=== PATIENT | male | born 1975 | race African-American/Black ===

== ENCOUNTER 2016-12-28 10:58 | Emergency (ER) | payer OTHER ==
[~2016-12-28] VITALS: Ht 193 cm; Wt 146.1 kg
[~2016-12-28 10:58] MED LIST: CELE200C PO; CYCL10TA2 PO; HYDR-971 PO; IBUP-1060 PO; LISI40TA PO; METF500T4 PO
[2016-12-28 11:09] VITALS: BP 163/110
[2016-12-28] MEDS ORDERED: IBUPROFEN 800 MG TABLET. PO ONE (11:30)
--- NOTE | 2016-12-28 11:51 | PHYS DOC ---
Past Medical History Past Medical History: Diabetes-Type II, Hypertension, Other Additional Past Medical Histor: DIABETES CONTROLLED BY EATING HABITS Past Surgical History: Tonsillectomy Alcohol Use: None Drug Use: None Adult General Chief Complaint Chief Complaint: SHOULDER INJURY [facility] HPI Patient is a 41 year old male presents to the emergency department with a history of falling down the stairs 10 days ago he was not seen at that time for any pain and discomfort. He presents to the emergency department to with c/o pain and discomfort to the left upper arm and upper back. He states he is unable to raise his hand above his head without using the right arm to help. Patient denies numbness or tingling to the left hand. Patient state she has taken [place] for the pain and discomfort, this is medication he had for his leg. Review of Systems Review of Systems Constitutional: Denies fever or chills [] Eyes: Denies change in visual acuity, redness, or eye pain [] HENT: Denies nasal congestion or sore throat [] Respiratory: Denies cough or shortness of breath [] Cardiovascular: No additional information not addressed in HPI [] GI: Denies abdominal pain, nausea, vomiting, bloody stools or diarrhea [] : Denies dysuria or hematuria [] Musculoskeletal: Denies back pain. C/o left shoulder pain and discomfort Integument: Denies rash or skin lesions [] Neurologic: Denies headache, focal weakness or sensory changes [] Endocrine: Denies polyuria or polydipsia [] Current Medications Current Medications Current Medications Medications (Trade) Dose Ordered Sig/[place] Start Time Stop Time Status Last Admin Dose Admin Ibuprofen (Motrin) 800 mg 1X ONCE 12/28/16 11:30 12/28/16 11:31 DC Allergies Allergies Allergies Coded Allergies Type Severity Reaction Last Updated Verified No Known Drug Allergies 07/16/13 No Physical Exam Physical Exam Constitutional: Well developed, well nourished, no acute distress, non-toxic appearance. [] HENT: Normocephalic, atraumatic, bilateral external ears normal, oropharynx moist, no oral exudates, nose normal. [] Eyes: PERRLA, EOMI, conjunctiva normal, no discharge. [] Neck: Normal range of motion, no tenderness, supple, no stridor. [] Cardiovascular:Heart rate regular rhythm, no murmur [] Lungs & Thorax: Bilateral breath sounds clear to auscultation [] Skin: Warm, dry, no erythema, no rash. [] Back: No tenderness Extremities: Left upper arm and left upper back tenderness, no cyanosis, no clubbing, ROM intact, no edema. 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 Patient is able to raise left arm shoulder height with patient grimacing noted. Neurologic: Alert and oriented X 3, normal motor function, normal sensory function, no focal deficits noted. [] Psychologic: Affect normal, judgement normal, mood normal. [] Current Patient Data Vital Signs Vital Signs Date Time Temp Pulse Resp B/P (MAP) Pulse Ox O2 Delivery O2 Flow Rate FiO2 12/28/16 11:09 97.9 103 20 95 Room Air 97.9 EKG EKG [] Radiology/Procedures Radiology/Procedures [] Course & Med Decision Making Course & Med Decision Making Pertinent Labs and Imaging studies reviewed. (See chart for details) Patients x-ray is negative. Recommended ice packs on 20 minutes and off 20 minutes several times a day. Ibuprofen 800 mg every 8 hours with food, stop taking if you develop upset stomach. Followup with primary care provider in 3-5 days. Signs and symptoms to return to the emergency department has been provided. Patient agrees with discharge instructions, treatment regimen and followup recommendations. [] Dragon Disclaimer Dragon Disclaimer This electronic medical record was generated, in whole or in part, using a voice recognition dictation system. Departure Departure Impression: Primary Impression: Left shoulder strain Disposition: 01 HOME, SELF-CARE Condition: STABLE Referrals: KAITLIN PUTNAM MD (PCP) Patient Instructions: Shoulder Pain, [id number] Additional Instructions: Activity as tolerated Ibuprofen 800 mg every 8 hours with food, stop taking if you develop upset stomach Ice packs on 20 minutes and off 20 minutes several times a day Elevation as much as possible Followup with your primary care provider in 3-5 days Return to emergency department as needed for signs and symptoms that become worse. LEYDA RAMIRES MONOTYPER Dec 28, 2016 11:51
--- NOTE | 2016-12-28 11:53 | RAD ---
Left shoulder, 3 views, 12/28/2016: History: Fall, injury No fracture or dislocation is identified. The periarticular soft tissues are unremarkable. IMPRESSION: No acute left shoulder abnormality is detected.
== END 2016-12-28 12:10 | disposition home or self-care (01) ==
LOC: ER 10:58
DX: S46.912A Strain of unspecified muscle, fascia and tendon at shoulder and upper arm level, left arm, initial encounter (principal); E11.9 Type 2 diabetes mellitus without complications; I10 Essential (primary) hypertension; W10.8XXA Fall (on) (from) other stairs and steps, initial encounter; Y93.89 Activity, other specified; Y92.89 Other specified places as the place of occurrence of the external cause; Y99.8 Other external cause status
CPT/HCPCS: 73030; 99284

== ENCOUNTER 2017-03-29 15:11 | Emergency (ER) | payer OTHER ==
[2017-03-29 15:18] VITALS: BP 174/87
[2017-03-29] MEDS ORDERED: PSEU120T9 PO (15:25)
[2017-03-29] MEDS ORDERED: FLUT9.9S NS (15:25)
--- NOTE | 2017-03-29 15:26 | PHYS DOC ---
Past Medical History Past Medical History: Diabetes-Type II, Hypertension, Other Additional Past Medical Histor: DIABETES CONTROLLED BY EATING HABITS Past Surgical History: Tonsillectomy Alcohol Use: None Drug Use: None Adult General Chief Complaint Chief Complaint: HEADACHE HPI HPI Patient is a 42 year old male presents to the ED with c/o head congestion for our days. NO fever. HE reports that he missed work today and is seeking a work release Review of Systems Review of Systems Constitutional: Denies fever or chills [] Eyes: Denies change in visual acuity, redness, or eye pain [] HENT:nasal congest, sore throat] Respiratory: cough Cardiovascular: No additional information not addressed in HPI [] GI: Denies abdominal pain, nausea, vomiting, bloody stools or diarrhea [] : Denies dysuria or hematuria [] Musculoskeletal: Denies back pain or joint pain [] Integument: Denies rash or skin lesions [] Neurologic: Denies headache, focal weakness or sensory changes [] Endocrine: Denies polyuria or polydipsia [] Allergies Allergies Allergies Coded Allergies Type Severity Reaction Last Updated Verified No Known Drug Allergies 07/16/13 No Physical Exam Physical Exam Constitutional: Well developed, well nourished, no acute distress, non-toxic appearance. [] HENT: Normocephalic, atraumatic, bilateral external ears normal, bilateral TM with effusion, oropharynx moist, posterior pharynx with erythema, PND present, no oral exudates, nose normal. [] Eyes: PERRLA, EOMI, conjunctiva normal, no discharge. [] Neck: Normal range of motion, no tenderness, supple, no stridor. [] Cardiovascular:Heart rate regular rhythm, no murmur [] Lungs & Thorax: Bilateral breath sounds clear to auscultation [] Abdomen: Bowel sounds normal, soft, no tenderness, no masses, no pulsatile masses. [] Skin: Warm, dry, no erythema, no rash. [] Back: No tenderness, no CVA tenderness. [] Extremities: No tenderness, no cyanosis, no clubbing, ROM intact, no edema. [] Neurologic: Alert and oriented X 3, normal motor function, normal sensory function, no focal deficits noted. [] Psychologic: Affect normal, judgement normal, mood normal. [] Current Patient Data Vital Signs Vital Signs Date Time Temp Pulse Resp B/P (MAP) Pulse Ox O2 Delivery O2 Flow Rate FiO2 03/29/17 15:18 98.6 103 20 97 Room Air 98.6 EKG EKG [] Radiology/Procedures Radiology/Procedures [] Course & Med Decision Making Course & Med Decision Making Pertinent Labs and Imaging studies reviewed. (See chart for details) [] Dragon Disclaimer Dragon Disclaimer This electronic medical record was generated, in whole or in part, using a voice recognition dictation system. Departure Departure Impression: Primary Impression: Upper respiratory infection Disposition: HOME, SELF-CARE Condition: STABLE Referrals: KAITLIN PUTNAM MD (PCP) Patient Instructions: Upper Respiratory Infection, Adult Scripts Pseudoephedrine Hcl (SUDAFED 12-HOUR) 120 Mg Tablet.er 1 TAB PO BID, #20 TAB Prov: ASPEN AARON APRN 03/29/17 Fluticasone Propionate (Flonase Allergy Relief) 9.9 Ml [place].susp 2 SPRAYS NS DAILY Y for nasasl congestion], #1 BOTTLE Prov: ASPEN AARON APRN 03/29/17 Problem Qualifiers Primary Impression: Upper respiratory infection URI type: unspecified viral URI Qualified Codes: J06.9 - Acute upper respiratory infection, unspecified; B97.89 - Other viral agents as the cause of diseases classified elsewhere ASPEN AARON APRN Mar 29, 2017 15:26
== END 2017-03-29 15:41 | disposition home or self-care (01) ==
LOC: ER 15:11
DX: J06.9 Acute upper respiratory infection, unspecified (principal); I10 Essential (primary) hypertension; E11.9 Type 2 diabetes mellitus without complications
CPT/HCPCS: 99282

== ENCOUNTER → 2020-08-13 | Outpatient (CLI) | payer BC ==
[~2020-08-13] MED LIST changes: +FLUT9.9S NS; +HYDR-3164 PO; -HYDR-971 PO; +LISI-130 PO; -LISI40TA PO; +METF500T16 PO; -METF500T4 PO; +PSEU120T9 PO
--- NOTE | 2020-08-16 12:30 | KCIC ---
MR LUMBAR SPINE WO [id number] History: Reason: BACK PAIN LUMBAR REGION / Spl. Instructions: Previous MR 2013. / History: Lower back pain since June. Newer LLE pain also. Technique: Multiplanar, multi sequential MR imaging was performed of the lumbar spine. Comparison: MRI January 05, 2014. Radiographs August 03, 2020 Findings: Transitional lumbosacral anatomy with lumbarization of S1. L5-S1 disc space is identified on axial T2 series 5 image 21. Normal vertebral body height and alignment. No fracture. Conus terminates at the normal location. No evidence of nerve root clumping. L1-L2: No canal or neuroforaminal narrowing. L2-L3: No canal or neuroforaminal narrowing. L3-L4: Minimal disc bulge. Small left foraminal disc protrusion and annular fissure. Mild facet arth ropathy. No canal or neuroforaminal narrowing. L4-L5: New large central disc extrusion extending inferiorly contributing to severe canal narrowing and nerve root compression. Moderate facet arthropathy. No neuroforaminal narrowing. L5-S1: Central disc protrusion with annular fissure, increased. Moderate facet arthropathy. Bilatera l subarticular recess narrowing with abutment of the descending S1 nerve roots. No canal narrowing. M oderate left neuroforaminal narrowing. No right neuroforaminal narrowing. Impression: 1. Transitional lumbosacral anatomy with lumbarization of S1. 2. New large L4-L5 disc extrusion contributing to severe canal narrowing with nerve root compression . 3. L5-S1 central disc protrusion contributing to subarticular recess narrowing with increased abutme nt of the descending S1 nerve roots. Correlate for radiculopathy. 4. Unchanged left L5-S1 neuroforaminal narrowing. FOR INTERNAL CODING PURPOSES Critical result: Findings discussed with Dr. Gagnon's nurse at 08/16/2020 12:22 PM. RESULT CODE: (C) 1. Electronically signed by: Alvino Arriola DO (08/16/2020 12:27 PM) [id number]
== END ==
LOC: KCIC MRI 13:35 → MERGE 14:00
PROVIDERS: ATTEND Family Medicine
DX: M47.817 Spondylosis without myelopathy or radiculopathy, lumbosacral region (principal); M48.07 Spinal stenosis, lumbosacral region; M51.27 Other intervertebral disc displacement, lumbosacral region; M51.26 Other intervertebral disc displacement, lumbar region
CPT/HCPCS: 72148

== ENCOUNTER → 2020-09-16 | Outpatient (CLI) | payer BC ==
[~2020-09-16] MED LIST changes: +GABA300C18 PO; +IOHEXOL 180 MG/ML 10 ML VIAL. ONE; +TIZA4TAB2 PO; +methylPREDNISolone ACETATE 40 MG/ML VIAL. ONE; +methylPREDNISolone ACETATE 80 MG/ML VIAL. ONE
--- NOTE | 2020-09-16 16:04 | PDOC1 ---
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 Patient reports pain is now in the low back rating to left lower extremity posterior gluteus posterior lateral thigh lateral anterior thigh anterior medial thigh posterior calf and lateral calf on the left side only. Patient reports is worse with walking standing changing positions better with sitting or laying down but has been awakened from sleep at least twice a night. Patient reports it can affect his bowel bladder control but no loss of continence but some increased frequency. Patient reports it does affect ability walk significantly although is not use any assistive devices to ambulate. Patient has had physical therapy as well as exercise and she is doing daily which helps but only very temporarily. Patient is taking ibuprofen 800 mg hydr ocodone 5 mg and tizanidine 4 mg also tried Lidoderm patch all of which have helped to a very mild extent mostly the hydrocodone and ibuprofen but is is limited to about 20 to 25% improvement. Patient did have MRI scan dated August 13, 2020 showing a new large L4-5 disc extrusion contribute to severe canal narrowing with nerve root compression also L5-S1 central disc protrusion c ontributing to subarticular recess narrowing and increased abutment of the descending S1 nerve roots from previous exam January 05, 2014. Patient rates his disability rating from 0-10 10 being the worst, as a 10 in all categories family home responsibilities recreation social activity sexual behavior occupation self-care life support activities. She reports no complete loss of function but significant fatigability with exercise and walking with the left lower extremity. PAST MEDICAL HISTORY: PMH: Arthritis, hypertension, type 2 diabetes PREVIOUS SURGERIES: Past Surgical Hx: Tonsillectomy CURRENT MEDICATIONS: Current Meds: Active Scripts Medications Dose Route/Sig Max Daily Dose Days Date Category Gabapentin (Gabapentin) 300 Mg Capsule 300 Mg PO TID 09/16/20 Reported Tizanidine Hcl 4 Mg Tablet 4 Mg PO TID PRN 09/16/20 Reported Ibuprofen 800 Mg Tablet 800 Mg PO PRN Q6HRS PRN 04/11/16 Rx Metformin Hcl 500 Mg Tablet 1 Tab PO BID 05/14/14 Reported Lisinopril 40 Mg Tablet 1 Tab PO DAILY 05/14/14 Reported [place] 5-325 Tablet (Acetaminophen/Hydrocodone Bitart) 1 Each Tablet 1 Each PO Q4HRS PRN 07/16/13 Rx ALLERGIES; Allergies: Coded Allergies: No Known Drug Allergies (Unverified , 07/16/13) FAMILY HISTORY: Family Hx: No major medical problems or conditions that he is aware of SOCIAL HISTORY: Social Hx: Patient does not genoveva alcohol does not smoke not use any illegal illicit r ecreational drugs is single, has 5 children living at home lives locally in [place], and works for [email or web address] REVIEW OF SYSTEMS: ROS: Positive for those items mentioned in history of present illness, all systems a re reviewed, otherwise negative ,and are complete full and well-documented on patient's chart. PHYSICAL EXAM: VS: Blood pressure is 150/108 pulse 105 respirations 18 temperature 97.8 F height is 6 foot 4 inches weight is 304 pounds PE: PHYSICAL EXAMINATION: GENERAL: The patient is awake, alert, oriented, appropriate, very pleasant demeanor HEENT: Shows normocephalic, atraumatic. Extraocular movements are intact and symmetrical. Oral cavity: Mucous membranes moist and pink. Dentition is intact. NECK: Shows anterior throat supple without palpable lymphadenopathy noted. Swal low reflex symmetrical. CHEST: Shows normal on inspection. Breath sounds are clear bilaterally, no rales rhonchi wheezes auscultated. HEART: Shows S1, S2 clear. No murmurs auscultated. ABDOMEN: Soft, nontender, nondistended, obese. No palpable organomegaly is noted. No rebound or guarding demonstrated. BACK: Shows spine grossly in the midline. Normal-appearing cervical lordotic curvature. There is slightly increased thoracic kyphosis, some flattening of the lumbar lordotic curvature. Lumbar paraspinous muscles show symmetrical on inspection, on palpation shows some moderate tenderness diffusely throughout the upper, middle and lower distribution of the paraspinous muscles bilaterally and also into the lower thoracic paraspinous musculature, firm and tender, but without specific trigger points, without radiation of pain. The patient has good rotational motion of the lumbar spine, both laterally as well as extension and flexion without significant difficulty. No tenderness over the spinous processes, sacrum or sacroiliac regions. EXTREMITIES: Lower extremities show deep tendon reflexes 2+ in the patellar and tendo calcaneus tendons. Motor exam is 5 on a scale of 5 with right dorsiflexion, extension, quadriceps and hamstring flexion and 4/5 on the left. Peripheral pulses are 1+ posterior tibial. No peripheral edema is noted bilaterally. Lower extremities are warm and dry to touch, equal in color and appearance. Straight leg raise noted to be negative on the right left side is positive at approximately 30 degrees decreased with knee flexion but not completely relieved.. Gaenslen's and Valeriano's maneuvers are negative bilater ally. The patient is able to stand, stand on his toes without significant difficulty or loss of balance does walk with a favoring gait favors a left lower extremity with a significant limp, not use any assistive device such as canes or walkers to ambulate. SKIN: Shows warm and dry, good turgor. No edema. No sores, rashes or bruising throughout. IMPRESSION: Impression: 45-year-old male with approximate 3-month history increasing pain low back left lower extremity radicular fashion MRI scan lumbar spine is noted Arthritis Type 2 diabetes Hypertension Plan: Options were discussed with patient including serve medical management physical therapies and interventional techniques. Patient would like to pursue interventional techniques. We discussed a lumbar epidural steroid injection, using descriptions as well as anatomical models to describe the procedure. Patient would like to proceed. Risks were discussed including but not limited to: Bleeding, infection, possibility of epidural hematoma and subsequent neurological compromise, dural puncture, headaches, spinal cord and/or nerve damage, side effects of steroid medication, and poor results regarding pain control. Patient understands and wished to proceed. Patient will return to clinic in approximate 2 weeks for follow-up, was counseled as return appointment activity level and side effects to be aware of. Procedure is lumbar epidural steroid injection under local anesthetic using sterile prep and drape at the L4-5 level using C-arm fluoroscopic guidance in both AP and lateral views medications injected is 120 mg Depo-Medrol + 10 mL preservative-free normal saline and 2 mL contrast- condition at discharge is stable patient tolerated procedure well had no complications. ANAYA NAILS MD Sep 16, 2020 16:04
== END | disposition home or self-care (01) ==
LOC: PNCL 13:22
PROVIDERS: ATTEND Anesthesiology
DX: M54.5 Low back pain (principal); M79.605 Pain in left leg; M19.90 Unspecified osteoarthritis, unspecified site; I10 Essential (primary) hypertension; E11.9 Type 2 diabetes mellitus without complications; Z79.899 Other long term (current) drug therapy; Z98.890 Other specified postprocedural states
CPT/HCPCS: 62323; J1030; J1040; Q9965

== ENCOUNTER → 2020-10-11 | Outpatient (CLI) | payer BC ==
--- NOTE | 2020-10-11 15:22 | PDOC4 ---
PROCEDURE Procedure Patient was consented for lumbar epidural steroid injection. Risks were dis cussed including but not limited to: Bleeding, infection, possibility of epidural hematoma and subsequent neurological compromise, dural puncture, headaches, spinal cord and/or nerve damage, side effects of steroid medication, and poor results regarding pain control. Patient understands and wished to proceed. Procedure is lumbar epidural steroid injection under local anesthetic using sterile prep and drape at the L4-5 level using C-arm fluoroscopic guidance in both AP and lateral views medications injected is 120 mg Depo-Medrol + 10 mL preservative-free normal saline and 2 mL contrast- condition at discharge is stable patient tolerated procedure well had no complications. ANAYA NAILS MD Oct 11, 2020 15:22
--- NOTE | 2020-10-11 15:22 | PDOC ---
Progress Note - Pain Clinic Date of Service: DOS: DATE: 10/11/20 TIME: 15:18 Diagnosis: Dx: Lumbar radiculopathy with lumbar degenerative disease and lumbar herniated disc History or Present Illness: HPI: 45-year-old male returns for follow-up status post lumbar epidural steroid injection x1. Patient reports about 60% improvement overall and the low back and left lower extremity some pain on the right side in the low back itself but much improved patient reports his mobility is significantly improved and he is able to do daily activities much greater ease and comfort he is sleeping better at night walking bending stooping lifting with much greater ease patient reports his mobility is most significant improvement still has some significant pain in the low back and bilateral lower extremities more on the left and the right posterior gluteus posterior lateral thigh lateral anterior thigh anteromedial thigh and medial lower legs patient ports is aching and shooting at times tingling and burning on and off in intensity patient rates his pain is 8-9 on scale 10 is worse with past week 6-7 at its average in 1 to its least is a 5 today. Patient reports no new motor or sensory deficits no new bowel or bladder cons or other complaints. Physical Exam: VS: Blood pressure is 174 120 pulse 105 respirations 16 temperature 98.4 F weight is 299 pounds PE: PHYSICAL EXAMINATION: GENERAL: The patient is awake, alert, oriented, appropriate, very pleasant demeanor HEENT: Shows normocephalic, atraumatic. Extraocular movements are intact and symmetrical. Oral cavity: Mucous membranes moist and pink. NECK: Shows anterior throat supple without palpable lymphadenopathy noted. Swallow reflex symmetrical. CHEST: Shows normal on inspection. Breath sounds are clear bilaterally. HEART: Shows S1, S2 clear. No murmurs auscultated. ABDOMEN: Soft, nontender, nondistended, obese. No palpable organomegaly is noted. BACK: Shows spine grossly in the midline. Normal-appearing cervical lordotic curvature. There is slightly increased thoracic kyphosis, some minor flattening of the lumbar lordotic curvature. Lumbar paraspinous muscles show symmetrical on inspection, on palpation shows some moderate tenderness diffusely throughout the upper, middle and lower distribution of the paraspinous muscles without specific trigger points, without radiation of pain. The patient has good rotational motion of the lumbar spine, both laterally as well as extension and flexion without significant difficulty. EXTREMITIES: Lower extremities show deep tendon reflexes 2+ in the patellar and tendo calcaneus tendons. Motor exam is 5 on a scale of 5 with right dorsiflexion, extension, quadriceps and hamstring flexion and 4/5 on the left. Peripheral pulses are 1+ posterior tibial. No peripheral edema is noted bilaterally. Lower extremities are warm and dry to touch, equal in color and appearance. SKIN: Shows warm and dry, good turgor. No edema. No sores, rashes or bruising throughout. Procedure: Procedure: Options were discussed with the patient. Patient chart was reviewed his current medication regimen updated current review systems updated today as well. We will proceed with a second in the series lumbar epidural steroid traction stable fluoroscopic guidance. Risks were discussed including but not limited to: Bleeding, infection, possibility of epidural hematoma and subsequent neurological compromise, dural puncture, headaches, spinal cord and/or nerve damage, side effects of steroid medication, and poor results regarding pain control. Patient understands and wished to proceed. Patient will return to clinic in approximate 2 weeks for follow-up was counseled as to return appointment activity level and side effects to be aware of. Medication Injected: Med Injected: Procedure is lumbar epidural steroid injection under local anesthetic using sterile prep and drape at the L4-5 level using C-arm fluoroscopic guidance in both AP and lateral views medications injected is 120 mg Depo-Medrol + 10 mL preservative-free normal saline and 2 mL contrast- condition at discharge is stable patient tolerated procedure well had no complications. Condition at Discharge: Condition at Discharge: Condition at discharge stable, patient alert procedure well and had no complications. ANAYA NAILS MD Oct 11, 2020 15:21
== END | disposition home or self-care (01) ==
LOC: PNCL 14:40
PROVIDERS: ATTEND Anesthesiology
DX: M51.16 Intervertebral disc disorders with radiculopathy, lumbar region (principal); Z79.84 Long term (current) use of oral hypoglycemic drugs; Z79.899 Other long term (current) drug therapy
CPT/HCPCS: 62323; J1030; J1040; Q9965; 77002

== ENCOUNTER → 2020-12-30 | Outpatient (CLI) | payer BC ==
--- NOTE | 2020-12-30 12:09 | PDOC4 ---
PROCEDURE Procedure Patient was consented for lumbar epidural steroid injection. Risks were dis cussed including but not limited to: Bleeding, infection, possibility of epidural hematoma and subsequent neurological compromise, dural puncture, headaches, spinal cord and/or nerve damage, side effects of steroid medication, and poor results regarding pain control. Patient understands and wished to proceed. Procedure is lumbar epidural steroid injection under local anesthetic using sterile prep and drape at the L4-5 level using C-arm fluoroscopic guidance in both AP and lateral views medications injected is 120 mg Depo-Medrol +10mL preservative-free normal saline and 2 mL contrast- condition at discharge is stable patient tolerated procedure well had no complications. ANAYA NAILS MD Dec 30, 2020 12:09
--- NOTE | 2020-12-30 12:09 | PDOC ---
Progress Note - Pain Clinic Date of Service: DOS: DATE: 12/30/20 TIME: 12:06 Diagnosis: Dx: Lumbar radiculopathy with lumbar degenerative disc disease and lumbar herniated disc History or Present Illness: HPI: 45-year-old male returns for follow-up status post lumbar epidural steroid injections x2. Patient reports about 50% improvement overall in the low back and left lower extremity. Patient reports he is increase his activity to greater ease and comfort is walking longer distances doing household activities work activities travel with greater ease and comfort sitting upright and with better posture much more comfortably patient reports she is sleeping well at night is not awakening from sleep at this time patient rates his pain as a 4 to scale 10 is worst for an average of 0 its least is a 4 today. Patient reports aching dull and tight tingling at times rating to the left lower extremity in the posterior gluteus lateral thigh anterior thigh medial thigh and some in the calf as well on the left side patient reports no new motor or sensory deficits no new bowel or bladder incontinence standing for long periods of time increases the pain and has some stiffness in the musculature in the mid upper back as well on the left side secondarily. Physical Exam: VS: Blood pressure is 141/1 pulse 101 respirations 18 temperature 98.3 F height is 6 foot 4 inches weight is 305 pounds PE: PHYSICAL EXAMINATION: GENERAL: The patient is awake, alert, oriented, appropriate, very pleasant demeanor HEENT: Shows normocephalic, atraumatic. Extraocular movements are intact and symmetrical. Oral cavity: Mucous membranes moist and pink. Dentition is intact. NECK: Shows anterior throat supple without palpable lymphadenopathy noted. Swallow reflex symmetrical. CHEST: Shows normal on inspection. Breath sounds are clear bilaterally. HEART: Shows S1, S2 clear. No murmurs auscultated. ABDOMEN: Soft, nontender, nondistended. BACK: Shows spine grossly in the midline. Normal-appearing cervical lordotic curvature. There is slightly increased thoracic kyphosis, some minor flattening of the lumbar lordotic curvature. Lumbar paraspinous muscles show symmetrical on inspection, on palpation shows some moderate tenderness diffusely throughout the upper, middle and lower distribution of the paraspinous muscles, but without specific trigger points, without radiation of pain. The patient has good rotational motion of the lumbar spine, both laterally as well as extension and flexion without significant difficulty. EXTREMITIES: Lower extremities show deep tendon reflexes 2+ in the patellar and tendo calcaneus tendons. Motor exam is 5 on a scale of 5 with right dorsiflexion, extension, quadriceps and hamstring flexion and 4/5 on the left. Peripheral pulses are 1+ posterior tibial. No peripheral edema is noted bilaterally. Lower extremities are warm and dry to touch, equal in color and appearance. SKIN: Shows warm and dry, good turgor. No edema. No sores, rashes or bruising throughout. Procedure: Procedure: Options were discussed with the patient. Patient chart reviews his current medication regimen updated current review of systems updated today as well. We will proceed with a third in the series lumbar epidural steroid injection today with fluoroscopic guidance. Risks were discussed including but not limited to: Bleeding, infection, possibility of epidural hematoma and subsequent neurological compromise, dural puncture, headaches, spinal cord and/or nerve damage, side effects of steroid medication, and poor results regarding pain control. Patient understands and wished to proceed. Patient will return to the clinic in approximately 2 weeks for follow-up, was counseled as to return appointment activity level, and side effects to be aware of. Medication Injected: Med Injected: Procedure is lumbar epidural steroid injection under local anesthetic using sterile prep and drape at the L4-5 level using C-arm fluoroscopic guidance in both AP and lateral views medications injected is 120 mg Depo-Medrol +10mL preservative-free normal saline and 2 mL contrast- condition at discharge is stable patient tolerated procedure well had no complications. Condition at Discharge: Condition at Discharge: Condition at discharge is stable, patient tolerated procedure well and had no complications. ANAYA NAILS MD Dec 30, 2020 12:09
== END | disposition home or self-care (01) ==
LOC: PNCL 11:28
PROVIDERS: ATTEND Anesthesiology
DX: M51.16 Intervertebral disc disorders with radiculopathy, lumbar region (principal); Z79.84 Long term (current) use of oral hypoglycemic drugs; Z79.899 Other long term (current) drug therapy
CPT/HCPCS: 62323; J1030; J1040; Q9965

== ENCOUNTER → 2021-04-08 | Outpatient (CLI) | payer BC ==
[~2021-04-08] MED LIST changes: -IOHEXOL 180 MG/ML 10 ML VIAL. ONE; -methylPREDNISolone ACETATE 40 MG/ML VIAL. ONE; -methylPREDNISolone ACETATE 80 MG/ML VIAL. ONE
--- NOTE | 2021-04-08 13:01 | KCIC ---
EXAM: Thoracic spine MRI without contrast. HISTORY: Pain. TECHNIQUE: Multiplanar, multisequence magnetic resonance imaging of the thoracic spine was performed without contrast. COMPARISON: Correlation is made with a lumbar spine MRI dated 08/13/2020. FINDINGS: The subgrade tester images of the spine demonstrate mild cervical kyphosis. There is a transitional l umbosacral segment, considered a partially lumbarized S1 segment on the prior exam. Based on this num bering system, there are 5 nonrib-bearing lumbar segments and 12 rib-bearing thoracic segments. There is mild endplate remodeling involving the thoracic spine. There are several small thoracic endplate Schmorl's nodes. There is no suspicious osseous lesion. There is no acute or subacute fracture. No th oracic spinal cord lesion is seen. There is a tiny shallow right paracentral to lateral recess disc protrusion at T4-T5 which abuts the right ventral aspect of the spinal cord. There is no significant stenosis. There is mild facet arthro juan daniel at the mid lower thoracic levels. This includes moderate left facet arthropathy at T11-T12 whic h results in mild left foraminal stenosis. IMPRESSION: 1. Mild multilevel degenerative change involving the thoracic spine, described in detail above. No se zahra stenosis or thoracic spinal cord lesion is seen. 2. Degenerative change involving the lumbar spine, better characterized on the MRI performed 1. Electronically signed by: Estrella Ashraf MD (04/08/2021 12:59 PM) [id number]
== END ==
LOC: KCIC MRI 10:12
PROVIDERS: ATTEND Family Medicine
DX: M47.814 Spondylosis without myelopathy or radiculopathy, thoracic region (principal); M47.816 Spondylosis without myelopathy or radiculopathy, lumbar region; M40.292 Other kyphosis, cervical region; M48.04 Spinal stenosis, thoracic region; M51.24 Other intervertebral disc displacement, thoracic region; M48.8X4 Other specified spondylopathies, thoracic region
CPT/HCPCS: 72146

== ENCOUNTER → 2021-08-02 | Outpatient (CLI) | payer BC ==
[~2021-08-02] MED LIST changes: +CYCL10TA19 PO; -CYCL10TA2 PO; +IOHEXOL 180 MG/ML 10 ML VIAL. ONE; +TIZA-75 PO; -TIZA4TAB2 PO; +methylPREDNISolone ACETATE 40 MG/ML VIAL. ONE; +methylPREDNISolone ACETATE 80 MG/ML VIAL. ONE
--- NOTE | 2021-08-02 10:55 | PDOC ---
Progress Note - Pain Clinic Date of Service: DOS: DATE: 08/02/21 TIME: 10:49 Diagnosis: Dx: Lumbar radiculopathy with lumbar degenerative disease and lumbar herniated disc Type 2 diabetes Hypertension History or Present Illness: HPI: 46-year-old male returns for follow-up last seen December 30, 2020. Patient reports he did very well after third lumbar epidural steroid injection with about 80% improvement until about a month ago the pain began to return in the low back left lower extremity more noticeable when he is on his feet at work as a working some longer shift hours but has been taking a greater toll on his body and increased pain with having to take more days off in between working days. Patient reports pain is increasing the low back left lower extremity posterior gluteus posterior lateral thigh lateral anterior thigh anteromedial thigh medial lower leg worse with standing walking changing positions initially was doing much better distance walking doing household activities work activities sleeping better now is awakening from sleep about every 4 hours described as aching in the back tight and shooting in the left lower extremity on and off in intensity patient reports is better with sitting or laying down but again is waking him frequently from sleep patient rates his pain as a 7 on scale 10 is worse with the past week 5 on average to its least and is a 5 today. Patient reports he is also been sitting trying to get the weight off of his left side as well is causing some upper mid back pain as well more on the left side. Patient reports blood sugar elevation after the injections for about 3 to 4 days but then normalizes on its own without having to increase treatment from the diabetes. We discussed patient's blood pressure as it was 170/119 rechecked was 172/118 and patient is eating with his primary care physician later today and will discuss this with him once again. Physical Exam: VS: Blood pressure 170/119 pulse 91 respirations 18 temperature 98.8 F height 6 feet 4 inches weight is 308 pounds PE: PHYSICAL EXAMINATION: GENERAL: The patient is awake, alert, oriented, appropriate, very pleasant in demeanor HEENT: Shows normocephalic, atraumatic. Extraocular movements are intact and symmetrical. Oral cavity: Mucous membranes moist and pink. Dentition is intact. NECK: Shows anterior throat supple without palpable lymphadenopathy noted. S wallow reflex symmetrical. CHEST: Shows normal on inspection. Breath sounds are clear bilaterally, distant but no rales rhonchi or wheezes auscultated. HEART: Shows S1, S2 clear. No murmurs auscultated. ABDOMEN: Soft, nontender, nondistended. No palpable organomegaly is noted. BACK: Shows spine grossly in the midline. Normal-appearing cervical lordotic curvature. There is increased thoracic kyphosis, some flattening of the lumbar lordotic curvature. Lumbar paraspinous muscles show asymmetrically with left greater than right on inspection, on palpation shows some moderate tenderness diffusely throughout the upper, middle and lower distribution of the paraspinous muscles without specific trigger points, without radiation of pain. Patient does have slight hypertrophy on the left compared to the right in the mid thoracic distribution consistent with myofascial conditioning and overuse on the left side, and is moderately tender with palpation throughout the thoracic distribution middle to lower. The patient has good rotational motion of the lumbar spine, both laterally as well as extension and flexion without significant difficulty. No tenderness over the spinous processes, sacrum or sacroiliac regions. EXTREMITIES: Lower extremities show deep tendon reflexes 2+ in the patellar and tendo calcaneus tendons. Motor exam is 5 on a scale of 5 with right dorsiflexion, extension, quadriceps and hamstring flexion and 4/5 on the left. Peripheral pulses are 1+ posterior tibial. No peripheral edema is noted bilater ally. Lower extremities are warm and dry to touch, equal in color and appearance. SKIN: Shows warm and dry, good turgor. No edema. No sores, rashes or bruising throughout. Procedure: Procedure: Options were discussed with the patient. Patient's old chart was reviewed his current medication regimen updated current review of systems updated today as well. We will proceed with a lumbar epidural steroid injection today with fluoroscopic guidance. Risks were discussed including but not limited to: Bleeding, infection, possibility of epidural hematoma and subsequent neurological compromise, dural puncture, headaches, spinal cord and/or nerve damage, side effects of steroid medication, and poor results regarding pain control. Patient understands and wished to proceed. Patient will return to the clinic in approximately 2 weeks for follow-up, was counseled as to return appointment, activity level, and side effects to be aware of. Medication Injected: Med Injected: Procedure is lumbar epidural steroid injection under local anesthetic using sterile prep and drape at the L4-5 level using C-arm fluoroscopic guidance in both AP and lateral views medications injected is 120 mg Depo-Medrol +10mL prese rvative-free normal saline and 2 mL contrast- condition at discharge is stable patient tolerated procedure well had no complications. Condition at Discharge: Condition at Discharge: Condition at discharge is stable, paced tolerated the procedure well and had no complications. ANAYA NAILS MD Aug 02, 2021 10:55
--- NOTE | 2021-08-02 10:56 | PDOC4 ---
Procedure Note: ICD 10 Code: ICD 10 Code: M54.16 M51.36 Procedure Note: Patient was consented for lumbar epidural steroid injection with fluoroscopic guidance. Risks were discussed including but not limited to: Bleeding, infection, possibility of epidural hematoma and subsequent neurological compromise, dural puncture, headaches, spinal cord and/or nerve damage, side effects of steroid medication, and poor results regarding pain control. Patient understands and wished to proceed. Procedure is lumbar epidural steroid injection under local anesthetic using sterile prep and drape at the L4-5 level using C-arm fluoroscopic guidance in both AP and lateral views medications injected is 120 mg Depo-Medrol +10mL preservative-free normal saline and 2 mL contrast- condition at discharge is stable patient tolerated procedure well had no complications. ANAYA NAILS MD Aug 02, 2021 10:56
== END | disposition home or self-care (01) ==
LOC: PNCL 09:52
PROVIDERS: ATTEND Anesthesiology
DX: M51.16 Intervertebral disc disorders with radiculopathy, lumbar region (principal); E11.9 Type 2 diabetes mellitus without complications; I10 Essential (primary) hypertension; Z79.84 Long term (current) use of oral hypoglycemic drugs; Z79.899 Other long term (current) drug therapy
CPT/HCPCS: 62323; J1030; J1040; Q9965